=== PATIENT | male | born 1970 | race Caucasian/White ===

== ENCOUNTER 2020-10-24 16:23 | Emergency (ER) | payer MEDICAID ==
[~2020-10-24] VITALS: Ht 172.7 cm; Wt 81.6 kg
[2020-10-24 16:34] VITALS: BP 129/84
[2020-10-24 17:41] LABS: BASOPHILS # (AUTO) 0.1 K/uL (0.00-0.22); BASOPHILS % (AUTO) 0.7 % (0.0-2.0); EOSINOPHILS # (AUTO) 0.1 K/uL (0-0.4); EOSINOPHILS % (AUTO) 1.5 % (0.0-4.0); HEMATOCRIT 46.9 % (36-52); HEMOGLOBIN 15.8 g/dL (12.0-18.0); LYMPHOCYTES # (AUTO) 2.3 K/uL (2.0-11.5); LYMPHOCYTES % (AUTO) 22.6 % (20.5-51.1); MEAN CORPUSCULAR HEMOGLOBIN 30 pg (27-31); MEAN CORPUSCULAR HGB CONC 34 g/dL (33-37); MONOCYTES # (AUTO) 0.7 K/uL (0.8-1.0); MONOCYTES % (AUTO) 6.8 % (1.7-9.3); NEUTROPHILS % (AUTO) 68.4 % (42.2-75.2); PLATELET COUNT (AUTO) 269 K/uL (140-450); RED BLOOD CELL COUNT(AUTO) 5.21 MIL/uL (4.20-6.10); RED CELL DISTRIBUTION WIDTH 14.2 % (11.6-13.7); WHITE BLOOD COUNT (AUTO) 10.2 K/uL (4.8-10.8)
--- NOTE | 2020-10-24 17:46 | NUR ---
C/O PAIN/NUMBNESS ON LEFT SIDE OF BODY, PT STATES HE FEELS BLOATED AND PAIN ONLY ON LEFT SIDE OF ABDOMEN X4 MONTHS. DENIES ANY VOMITING NO PMH NKDA
[2020-10-24 17:54] LABS: ALBUMIN 4.7 g/dL (3.4-5.0); ANION GAP 9.7 (8-16); CARBON DIOXIDE 30.7 mmol/L (21-32); CREATININE 0.9 mg/dL (0.6-1.3); POTASSIUM 4.4 mmol/L (3.5-5.1); TOTAL BILIRUBIN 0.6 mg/dL (0.0-1.0)
--- NOTE | 2020-10-24 19:15 | NUR ---
Pt taken to CT scan via W/C.
--- NOTE | 2020-10-24 19:30 | NUR ---
Received report from Mae LEMUS for continuity of care.
--- NOTE | 2020-10-24 19:35 | NUR ---
Pt returned from CT.
[2020-10-24 19:56] LABS: APPEARANCE,URINE CLEAR (CLEAR); BILIRUBIN,URINE NEGATIVE (NEGATIVE); BLOOD, URINE NEGATIVE (NEGATIVE); COLOR,URINE YELLOW (YELLOW); LEUKOCYTE ESTERASE ,URINE NEGATIVE (NEGATIVE); NITRITE, URINE NEGATIVE (NEGATIVE); UGLUCOSE NEGATIVE (NEGATIVE)
[2020-10-24 20:25] VITALS: BP 130/88
--- NOTE | 2020-10-24 20:25 | NUR ---
Patient discharged with v/s stable. Written and verbal after care instructions given and explained. Patient verbalized understanding. Ambulatory with steady gait. All questions addressed prior to discharge. Advised to follow up with PMD. IV removed, catheter intact and site benign. Applied folded 4x4 gauze and tape to stop bleeding.
== END 2020-10-24 17:20 | disposition home or self-care (01) ==
LOC: MED 16:23
DX: D17.71 Benign lipomatous neoplasm of kidney (principal); N28.1 Cyst of kidney, acquired; R10.9 Unspecified abdominal pain
CPT/HCPCS: 36415; 74177; 80053; 81003; 83690; 85025; 87086; 99285; Q9967

== ENCOUNTER 2023-09-05 12:34 | Emergency (ER) | payer BC, MEDICAID ==
[~2023-09-05] VITALS: Ht 165.1 cm; Wt 75.3 kg
[2023-09-05 12:49] VITALS: BP 119/83; PULSE 89; RESP 16; TEMP 97.5; O2SAT 97
[2023-09-05 13:18] LABS: APPEARANCE,URINE CLEAR (CLEAR); BILIRUBIN,URINE NEGATIVE (NEGATIVE); BLOOD, URINE NEGATIVE (NEGATIVE); COLOR,URINE YELLOW (YELLOW); LEUKOCYTE ESTERASE ,URINE NEGATIVE (NEGATIVE); NITRITE, URINE NEGATIVE (NEGATIVE); PH,URINE 6.5 (5.0-9.0); PROTEIN,URINE NEGATIVE (NEGATIVE); UGLUCOSE NEGATIVE (NEGATIVE); UROBILINOGEN,URINE 0.2 EU/dL (0.2 - 1)
[2023-09-05 14:25] VITALS: O2SAT 97
[2023-09-05] MEDS ORDERED: KETOROLAC 60 MG/2 ML VIAL IM ONE (14:25)
[2023-09-05] MEDS ORDERED: IBUP-2213 PO (14:34)
== END 2023-09-05 15:00 | disposition home or self-care (01) ==
LOC: MED 12:44
DX: R10.9 Unspecified abdominal pain (principal)
CPT/HCPCS: 81003; 96372; 99283; J1885